=== PATIENT | female | born 1965 | race Caucasian/White ===

== ENCOUNTER 2022-04-03 07:15 | Outpatient (CLI) | payer OTHER | END 2022-04-03 07:19 | disposition home or self-care (01) | LOC: LAB 07:15 | PROVIDERS: ATTEND Specialist | DX: E78.00 Pure hypercholesterolemia, unspecified (principal); I10 Essential (primary) hypertension; N39.0 Urinary tract infection, site not specified ==

== ENCOUNTER 2022-04-03 07:31 | Outpatient (CLI) | payer OTHER | END 2022-04-03 07:39 | disposition home or self-care (01) | LOC: SONOGRAMA 07:31 | PROVIDERS: ATTEND Specialist | DX: R10.9 Unspecified abdominal pain (principal) ==

== ENCOUNTER 2023-03-02 09:17 | Outpatient (CLI) | payer OTHER | END 2023-03-02 09:28 | disposition home or self-care (01) | LOC: LAB 09:17 | DX: D64.9 Anemia, unspecified (principal); N39.0 Urinary tract infection, site not specified; E78.5 Hyperlipidemia, unspecified; E03.9 Hypothyroidism, unspecified; I10 Essential (primary) hypertension; M19.90 Unspecified osteoarthritis, unspecified site; E11.9 Type 2 diabetes mellitus without complications ==

== ENCOUNTER 2023-05-11 09:17 | Outpatient (CLI) | payer OTHER | END 2023-05-11 09:21 | disposition home or self-care (01) | LOC: LAB 09:17 | DX: N95.1 Menopausal and female climacteric states (principal); D50.9 Iron deficiency anemia, unspecified; E55.9 Vitamin D deficiency, unspecified ==

== ENCOUNTER → 2023-05-15 | Outpatient (CLI) | payer OTHER | END | disposition home or self-care (01) | LOC: MAMO-SONO 07:57 | DX: R10.2 Pelvic and perineal pain (principal); N91.1 Secondary amenorrhea; Z12.31 Encounter for screening mammogram for malignant neoplasm of breast; N64.9 Disorder of breast, unspecified; N64.4 Mastodynia ==

== ENCOUNTER 2023-06-24 09:54 | Emergency (ER) | payer OTHER ==
[~2023-06-24] VITALS: Ht 165.1 cm; Wt 70.3 kg
== END 2023-06-24 14:50 | disposition home or self-care (01) ==
LOC: ER 09:54
DX: K52.9 Noninfective gastroenteritis and colitis, unspecified (principal)

== ENCOUNTER 2023-07-13 10:07 | Outpatient (CLI) | payer OTHER | END 2023-07-13 10:11 | disposition home or self-care (01) | LOC: LAB 10:07 | PROVIDERS: ATTEND Obstetrics & Gynecology Gynecology | DX: N95.1 Menopausal and female climacteric states (principal); R19.4 Change in bowel habit ==

== ENCOUNTER 2023-07-30 10:45 | Outpatient (CLI) | payer OTHER | END 2023-07-30 10:48 | disposition home or self-care (01) | LOC: LAB 10:45 | DX: C54.1 Malignant neoplasm of endometrium (principal) ==

== ENCOUNTER 2023-08-07 07:13 | Outpatient (CLI) | payer OTHER | END 2023-08-07 07:26 | disposition home or self-care (01) | LOC: TOM 07:13 | PROVIDERS: ATTEND Obstetrics & Gynecology Gynecology | DX: C54.1 Malignant neoplasm of endometrium (principal) ==

== ENCOUNTER 2023-11-23 10:07 | Outpatient (CLI) | payer OTHER ==
[2023-11-23 11:07] LABS: HEMATOCRIT 37.1 % (36.0-45.00); HEMOGLOBIN 12.4 g/dL (12.0-15.00); MEAN CELL VOLUME 85.7 fL (80.00-100.00); MEAN CORPUSCULAR HEMOGLOBIN 28.6 pg (27.00-32.0); MEAN CORPUSCULAR HGB CONC 33.3 g/dl (32.0-36.0); PLATELET COUNT 273 K/uL (150-450); RED BLOOD COUNT 4.33 M/uL (4.00-6.00)
[2023-11-23 11:09] LABS: PH,URINE 5.5 (5.0-8.0); URINE APPEARANCE Clear; URINE BILIRRUBIN Negative (NEGATIVE); URINE BLOOD Trace; URINE COLOR Yellow; URINE GLUCOSE Negative (NEGATIVE); URINE LEUKOCYTE Negative; URINE NITRATE Negative; URINE PROTEIN Negative (NEGATIVE); URINE UROBILINOGEN 0.2 E.U./dl
[2023-11-23 11:13] LABS: URINE BACTERIA 28.9 uL (0.0-1933); URINE EPITHELIAL CELLS 4.6 uL (0.0-38.8); URINE WBC 4.3 uL (0.0-23.2)
[2023-11-23 11:27] LABS: INR 0.96; PARTIAL THROMBOPLASTIN TIME 25.9 SECONDS (22.0-34.0); PROTHROMBIN TIME 10.1 SECONDS (9.0-11.5)
[2023-11-23 11:36] LABS: ALBUMIN 3.7 gm/dL (3.4-5.0); BILIRUBIN TOTAL 0.46 mg/dL (0.3-1.2); CALCIUM 9.1 mg/dL (8.5-10.1); CREATININE SERUM 0.74 mg/dL (0.55-1.02); GFR 80.89; GLOBULINA 4.2 G/DL (2.4-3.5); POTASSIUM 4.22 mEq/L (3.5-5.1); TOTAL PROTEIN 7.9 gm/dL (6.4-8.2)
== END 2023-11-23 10:09 | disposition home or self-care (01) ==
LOC: LAB 10:07
DX: I49.3 Ventricular premature depolarization (principal); I45.6 Pre-excitation syndrome

== ENCOUNTER 2023-12-06 07:30 | Inpatient (IN) | payer OTHER ==
[~2023-12-06] VITALS: Ht 165.1 cm; Wt 67.1 kg
[2023-12-12 13:19] LABS: HEMATOCRIT 35.6 % (36.0-45.00); HEMOGLOBIN 11.7 g/dL (12.0-15.00); MEAN CELL VOLUME 85.6 fL (80.00-100.00); MEAN CORPUSCULAR HEMOGLOBIN 28.1 pg (27.00-32.0); MEAN CORPUSCULAR HGB CONC 32.9 g/dl (32.0-36.0); PLATELET COUNT 280 K/uL (150-450); RED BLOOD COUNT 4.17 M/uL (4.00-6.00); RED CELL DISTRIBUTION WIDTH 13.9 % (11.5-14.5)
[2023-12-12 13:35] LABS: CALCIUM 8.8 mg/dL (8.5-10.1); CREATININE SERUM 0.71 mg/dL (0.55-1.02); GFR 84.85; POTASSIUM 4.46 mEq/L (3.5-5.1)
[2023-12-13 01:40] LABS: HEMATOCRIT 32.7 % (36.0-45.00); HEMOGLOBIN 10.9 g/dL (12.0-15.00); MEAN CELL VOLUME 85.4 fL (80.00-100.00); MEAN CORPUSCULAR HEMOGLOBIN 28.4 pg (27.00-32.0); MEAN CORPUSCULAR HGB CONC 33.2 g/dl (32.0-36.0); PLATELET COUNT 242 K/uL (150-450); RED BLOOD COUNT 3.84 M/uL (4.00-6.00); RED CELL DISTRIBUTION WIDTH 13.8 % (11.5-14.5)
[2023-12-13 02:00] LABS: CALCIUM 8.5 mg/dL (8.5-10.1); CREATININE SERUM 1.22 mg/dL (0.55-1.02); GFR 45.43; POTASSIUM 3.94 mEq/L (3.5-5.1)
== END 2023-12-13 11:08 | disposition home or self-care (01) | DRG 743 ==
LOC: O/R 12-12 05:20 → SURH 12-12 07:30 → OB/GYN 12-12 11:09 → SURH 12-12 13:30 → OB/GYN 12-13 11:08
PROVIDERS: Obstetrics & Gynecology; ADMIT Obstetrics & Gynecology Gynecologic Oncology; ATTEND Obstetrics & Gynecology Gynecologic Oncology
PROC: 0UT74ZZ Resection of Bilateral Fallopian Tubes, Percutaneous Endoscopic Approach (ICD-10-PCS; 2023-12-12)
PROC: 0UT24ZZ Resection of Bilateral Ovaries, Percutaneous Endoscopic Approach (ICD-10-PCS; 2023-12-12)
PROC: 07BC4ZZ Excision of Pelvis Lymphatic, Percutaneous Endoscopic Approach (ICD-10-PCS; 2023-12-12)
PROC: 0UT94ZZ Resection of Uterus, Percutaneous Endoscopic Approach (ICD-10-PCS; principal; 2023-12-12 13:30)
DX: N80.03 Adenomyosis of the uterus (principal); Z20.822 Contact with and (suspected) exposure to COVID-19

== ENCOUNTER → 2024-01-11 08:24 | Outpatient (CLI) | payer OTHER ==
[2024-01-11 10:10] LABS: PH,URINE 5.5 (5.0-8.0); URINE APPEARANCE Clear; URINE BILIRRUBIN Negative (NEGATIVE); URINE BLOOD Trace; URINE COLOR Yellow; URINE GLUCOSE Negative (NEGATIVE); URINE LEUKOCYTE Negative; URINE NITRATE Negative; URINE PROTEIN Negative (NEGATIVE); URINE UROBILINOGEN 0.2 E.U./dl
[2024-01-11 10:14] LABS: URINE BACTERIA 7.5 uL (0.0-1933); URINE EPITHELIAL CELLS 2.4 uL (0.0-38.8); URINE RBC 9.9 uL (0.0-20.8); URINE WBC 1.8 uL (0.0-23.2)
[2024-01-11 10:27] LABS: HEMATOCRIT 37.4 % (36.0-45.00); HEMOGLOBIN 12.6 g/dL (12.0-15.00); MEAN CELL VOLUME 85.1 fL (80.00-100.00); MEAN CORPUSCULAR HEMOGLOBIN 28.7 pg (27.00-32.0); MEAN CORPUSCULAR HGB CONC 33.8 g/dl (32.0-36.0); PLATELET COUNT 268 K/uL (150-450); RED CELL DISTRIBUTION WIDTH 14.3 % (11.5-14.5)
[2024-01-11 11:27] LABS: ALBUMIN 3.8 gm/dL (3.4-5.0); BILIRUBIN TOTAL 0.51 mg/dL (0.3-1.2); CALCIUM 9.9 mg/dL (8.5-10.1); CHOL HDL RATIO 4.2 (0-5.0); CREATININE SERUM 0.78 mg/dL (0.55-1.02); GFR 76.12; GLOBULINA 4.2 G/DL (2.4-3.5); POTASSIUM 4.55 mEq/L (3.5-5.1); T4 TOTAL 9.33 UG/DL (4.8-13.9); TSH 2.46 uIU/mL (0.358-3.74)
[2024-01-13 13:11] LABS: T3 TOTAL 1.2 ng/ml (0.846-2.02); VITAMIN D3 25 HYDROXY 36.42 ng/ml (30-120)
== END | disposition home or self-care (01) ==
LOC: LAB 08:24
PROVIDERS: ATTEND Family Medicine
DX: E55.9 Vitamin D deficiency, unspecified (principal); E78.2 Mixed hyperlipidemia; I10 Essential (primary) hypertension; E11.65 Type 2 diabetes mellitus with hyperglycemia